=== PATIENT | male | born 1960 | race Hispanic/Latino ===

== ENCOUNTER 2018-04-13 05:55 | Day surgery (SDC) | payer OTHER ==
[2018-04-12 13:40] LABS: Absolute Lymphocytes (CBC) 1.9 K/uL (0.7-4.9); Absolute Neutrophil 3.9 K/uL (1.8-8.0); Basophils % 0.6 % (0-1.3); Eosinophils % 5.9 % (0-4.4); Hematocrit 45.8 % (39.6-49.0); Lymphocytes % 25.5 % (15.3-44.8); MCH 30.3 pg (27.0-35.0); MCV 87.1 fL (80-100); MPV 8.7 fL (7.6-11.3); Monocytes % 14.2 % (3.3-12.3); RBC Red Blood Cell Count 5.26 M/uL (4.33-5.43)
[2018-04-12 13:47] LABS: Protime INR 1.06
[2018-04-12 15:40] LABS: COL/ADP 62 SECONDS (56-102); COL/EPI 77 SECONDS (80-184)
[~2018-04-13 05:55] MED LIST: Ringers Lactate 1,000 ML IV SCH
--- OUTSIDE RECORDS SUMMARY | 2018-04-13 06:00 | XMS REPORT ---
:1960 Author Organization eClinicalWorks Care Team Providers Name Role Phone Clifton Guy Provider Role Unavailable Allergies No Known Allergies Problems Problem Type Condition Code Onset Dates Condition Status Problem Jaundice R17 Active Problem Obesity (BMI 30-39.9) E66.9 Active Problem Family history of diabetes mellitus Z83.3 Active Problem Back pain with left-sided M54.10 Active radiculopathy Problem Spinal stenosis of lumbosacral M48.07 Active region Problem Numbness of left foot R20.8 Active Problem Benign essential HTN I10 Active Problem Back pain M54.9 Active Problem Calculus of gallbladder with acute K80.01 Active cholecystitis and obstruction Problem Hyperlipidemia E78.5 Active Assessment Benign essential HTN I10 Active Assessment Hyperlipidemia E78.5 Active Assessment Numbness of left foot R20.8 Active Assessment Back pain with left-sided M54.10 Active radiculopathy Problem Cholestasis K83.1 Active Medications Medication Code System Code Instructions Start Date End Date Status Dosage Duexis [facility] 97695678150 800-26.6 MG Active 1 tablet Orally Three times a day Aspir-[address] [facility] 68818301981 81 MG Orally Once Active 1 tablet a day Results No Known Results Summary Purpose eClinicalWorks Submission
--- OUTSIDE RECORDS SUMMARY | 2018-04-13 06:00 | XMS REPORT ---
:1960 Author Organization eClinicalWorks Care Team Providers Name Role Phone Guy Lazo Provider Role Unavailable Allergies No Known Allergies Problems Problem Type Condition Code Onset Dates Condition Status Problem Jaundice R17 Active Problem Obesity (BMI 30-39.9) E66.9 Active Problem Family history of diabetes mellitus Z83.3 Active Problem Cholestasis K83.1 Active Problem Back pain with left-sided M54.10 Active radiculopathy Problem Spinal stenosis of lumbosacral M48.07 Active region Problem Numbness of left foot R20.8 Active Problem Benign essential HTN I10 Active Problem Back pain M54.9 Active Problem Calculus of gallbladder with acute K80.01 Active cholecystitis and obstruction Problem Hyperlipidemia E78.5 Active Medications No Known Medications Results No Known Results Summary Purpose eClinicalWorks Submission
[2018-04-13] MEDS ORDERED: Ringers Lactate 1,000 ML IV ONE (06:08)
[2018-04-13] MEDS ORDERED: TRIAMCINOLONE ACETON 40 MG/ML VIAL ONE ×2 (06:52→07:09)
[2018-04-13] MEDS ORDERED: LIDOCAINE 1% MPF 5 ML VIAL ONE (06:52)
[2018-04-13] MEDS ORDERED: BUPIVACAINE 0.25% PF 10 ML VIAL ONE (06:53)
[2018-04-13 07:57] VITALS: BP 101/71; TEMP 97.4; O2SAT 96
--- NOTE | 2018-04-13 08:54 | RAD REPORT ---
EXAM DESCRIPTION: RAD - Fluoro Guide Spinal Inj - 04/13/2018 8:48 am FINDINGS: Two fluoroscopic images were submitted from a fluoroscopic assisted pain or epidural stero id injection procedure. No suspicious or unexpected finding. Fluoro time was less than 0.1 minutes. Cumulative dose was 1.42 mGy.
--- NOTE | 2018-04-13 19:13 | DS ---
Date of Discharge: 04/13/2018 Admission Diagnoses: Low back pain, lumbar radicular pain, lumbar spondylosis, and lumbar degenerati ve disk disease. Postoperative Diagnoses: Low back pain, lumbar radicular pain, lumbar spondylosis, and lumbar degene rative disk disease. Pertinent History: Per his history and physical on chart. Hospital Course: Uneventful. Condition On Discharge: Good. Diet: As before. Followup: He is to follow up with us on his next injection in a couple of weeks. /HOOD Voice ID: [id number] Report ID: [id number]
--- NOTE | 2018-04-13 19:13 | OP ---
Date of Procedure: 04/13/2018 Surgeon: David Markham DO Preoperative Diagnoses: Low back pain, lumbar radicular pain, lumbar spondylosis, lumbar degenerativ e disk disease. Postoperative Diagnoses: Low back pain, lumbar radicular pain, lumbar spondylosis, lumbar degenerati ve disk disease. Procedures: 1.Fluoroscopy with the evaluation of lumbar spine. 2.Lumbar epidural steroid injection. Anesthesia: MAC with IV sedation. Estimated Blood Loss: Minimal. Complications: None. Procedure In Detail: Mr. Alonso is a 57-year-old male, who has significant pain in his low back regio n, pain radiating down into his left lower extremity. He had this for several years pain in his back , equals the pain to his left lower extremity. He has undergone surgery in the past. He does have s ome subjective complaints of tingling in his left lower extremity. His previous MRI scan revealed bi lateral foraminal stenosis at the L4-5 and the L5-S1 region with a right hemilaminectomy defect. The patient was taken to the OR Room #4, placed in the prone position. Back was prepped and draped in s terile fashion. Sacral hiatus was identified. A 1% lidocaine was used for local anesthesia. A 16-g auge RK needle was used until passing into the sacral hiatus. Needle tip position was confirmed on t he AP lateral and fluoroscopic views. Next, an epidural catheter was advanced in a cephalad directio n. The catheter could not be passed beyond the mid L5 cephalad traction. Next, 10 cc of Omnipaque contrast was used to perform lumbar epidurogram with very minimal spread in dire ction from that level. Next, 3 cc of 0.25% Marcaine was given as a test dose after few minutes. The re was no evidence of local anesthetic. Next, 7 cc of 0.25% Marcaine was mixed with 40 mg of Kenalog and this was injected slowly with frequent negative aspiration. After the procedure was completed, the patient then was taken to the recovery room in stable condition. The patient remained monitoring prior to discharge to home. JULISSA Voice ID: [id number] Report ID: [id number]
== END 2018-04-13 08:20 | disposition home or self-care (01) ==
LOC: OR 05:55
PROVIDERS: ATTEND Anesthesiology
PROC: 3E0S3BZ Introduction of Anesthetic Agent into Epidural Space, Percutaneous Approach (ICD-10-PCS; 2018-04-13)
PROC: B01BYZZ Fluoroscopy of Spinal Cord using Other Contrast (ICD-10-PCS; 2018-04-13)
PROC: B01BYZZ Fluoroscopy of Spinal Cord using Other Contrast (ICD-10-PCS; 2018-04-13)
PROC: 3E0S33Z Introduction of Anti-inflammatory into Epidural Space, Percutaneous Approach (ICD-10-PCS; principal; 2018-04-13 07:00)
DX: M51.16 Intervertebral disc disorders with radiculopathy, lumbar region (principal); M47.896 Other spondylosis, lumbar region
CPT/HCPCS: 36415; 77003; 85025; 85576; 85610; 85730; C1751; J3301

== ENCOUNTER 2018-04-27 06:00 | Day surgery (SDC) | payer OTHER ==
[~2018-04-27 06:00] MED LIST changes: +DEXAMETHASONE 10 MG/ML VIAL ONE; +LIDOCAINE 2% MPF 5 ML VIAL ONE; +MIDAZOLAM HCL 2 MG/2 ML INJ ONE; +PROPOFOL 200 MG/20 ML VIAL IV ONE; -Ringers Lactate 1,000 ML IV SCH
--- OUTSIDE RECORDS SUMMARY | 2018-04-27 06:11 | XMS REPORT ---
[...] Date End Date Status Dosage Duexis [facility] [id number] 800-26.6 MG Active 1 tablet Orally Three times a day Aspir-81 [facility] 45831114749 81 MG Orally Once Active 1 tablet a day Results No Known Results Summary Purpose eClinicalWorks Submission
--- OUTSIDE RECORDS SUMMARY | 2018-04-27 06:11 | XMS REPORT ---
[...] and obstruction Problem Hyperlipidemia E78.5 Active Assessment Numbness of left foot R20.8 Active Assessment Benign essential HTN I10 Active Assessment Back pain with left-sided M54.10 Active radiculopathy Assessment Hyperlipidemia E78.5 Active Problem Cholestasis K83.1 Active Medications Medication Code System Code Instructions Start Date End Date Status Dosage Duexis [facility] 47038434626 800-26.6 MG Active 1 tablet Orally Three times a day Aspir-81 [facility] 13407906540 81 MG Orally Once Active 1 tablet a day Results No Known Results Summary Purpose eClinicalWorks Submission
[2018-04-27] MEDS ORDERED: PROPOFOL 200 MG/20 ML VIAL IV ONE ×2 (06:34→06:36)
[2018-04-27] MEDS ORDERED: LIDOCAINE 1% MPF 5 ML VIAL ONE ×2 (06:35→06:46)
[2018-04-27] MEDS ORDERED: MIDAZOLAM HCL 2 MG/2 ML INJ ONE (06:35)
[2018-04-27] MEDS ORDERED: Ringers Lactate 1,000 ML IV ONE (06:41)
[2018-04-27] MEDS ORDERED: TRIAMCINOLONE ACETON 40 MG/ML VIAL ONE (06:47)
[2018-04-27] MEDS ORDERED: BUPIVACAINE 0.25% PF 10 ML VIAL ONE (06:47)
[2018-04-27] MEDS ORDERED: NS 0.9% VIAL 0 ML ONE (07:05)
[2018-04-27 08:01] VITALS: BP 122/77; TEMP 97.5; O2SAT 98
--- NOTE | 2018-04-27 08:56 | RAD REPORT ---
EXAM DESCRIPTION: RAD - Fluoro Guide Spinal Inj - 04/27/2018 7:30 am FINDINGS: Fluoroscopic assisted epidural lumbosacral steroid injection procedure performed. There we re 2 images submitted which show no suspicious or unexpected finding. Fluoro time was 0.1 minutes. Cumulative dose was 3.21 mGy.
--- NOTE | 2018-04-27 18:37 | DS ---
Date of Discharge: 04/27/2018 Admission Diagnoses: Low back pain, lumbar radicular pain, lumbar spondylosis, lumbar degenerative d isk disease. Discharge Diagnoses: Low back pain, lumbar radicular pain, lumbar spondylosis, lumbar degenerative d isk disease. Pertinent History: Per his history and physical on the chart. Diet: Regular as before. Followup: He is to follow up with us in a couple weeks for his third injection. /HOOD Voice ID: [id number] Report ID: [id number]
--- NOTE | 2018-04-27 18:42 | OP ---
Date of Procedure: 04/27/2018 Surgeon: David Markham DO Preoperative Diagnoses: Low back pain, lumbar radicular pain, lumbar spondylosis, lumbar degenerativ e disk disease. Postoperative Diagnoses: Low back pain, lumbar radicular pain, lumbar spondylosis, lumbar degenerati ve disk disease. Procedures: 1.Fluoroscopy with evaluation of the lumbar spine. 2.Lumbar epidural steroid injection. Anesthesia: MAC with IV sedation. Estimated Blood Loss: Minimal. Complications: None. Indications: Mr. Alonso is a 58-year-old male who has significant pain in his low back region, pain r adiating down into his left lower extremity. He has had this for several months. He has undergone s urgery in the past. The pain in his low back is described as direct. This becomes worst with most p rolonged activity. The risks and benefits of procedure explained to the patient. The patient agrees to proceed. Procedure In Detail: The patient was taken to the OR room #1, placed in the prone position. The trent k was prepped and draped in sterile fashion. The sacral hiatus was identified. 1% lidocaine used fo r local anesthesia. A 16-gauge RK needle was used until passing into the sacral hiatus. Needle tip position was confirmed in the AP and lateral fluoroscopic views. Next, an epidural catheter was adva nced in a cephalad direction. The catheter could not be passed beyond the mid L5 cephalad direction. Next, 10 cc of Omnipaque contrast was used to perform diagnostic lumbar epidurogram with very minimal spread of the dye in a separate direction from that level with additional fluids that w as injected some flow dye to the L4-L5 level. Next, 3 cc of 0.25% Marcaine was given as a test dose after few minutes. There was no evidence of intrathecal, intravascular subdural spread of local anes thetic. Next 7 cc of 0.25% Marcaine was mixed with 40 mg of Kenalog. This was injected slowly with frequent negative aspiration. After the procedure was completed, the patient was taken to the [facility] in stable condition. /HOOD Voice ID: [id number] Report ID: [id number]
== END 2018-04-27 08:00 | disposition home or self-care (01) ==
LOC: OR 06:00
PROVIDERS: ATTEND Anesthesiology
PROC: 3E0U33Z Introduction of Anti-inflammatory into Joints, Percutaneous Approach (ICD-10-PCS; 2018-04-27)
PROC: BR16YZZ Fluoroscopy of Lumbar Facet Joint(s) using Other Contrast (ICD-10-PCS; 2018-04-27)
PROC: 3E0U3BZ Introduction of Anesthetic Agent into Joints, Percutaneous Approach (ICD-10-PCS; principal; 2018-04-27 07:00)
DX: M47.26 Other spondylosis with radiculopathy, lumbar region (principal); M51.36 Other intervertebral disc degeneration, lumbar region
CPT/HCPCS: 77003; C1751; J1100; J2250; J3301; Q9967

== ENCOUNTER 2018-05-11 06:02 | Day surgery (SDC) | payer OTHER ==
--- OUTSIDE RECORDS SUMMARY | 2018-05-11 06:04 | XMS REPORT ---
[...] Start Date End Date Status Dosage Duexis [facility] [id number] 800-26.6 MG Active 1 tablet Orally Three times a day Aspir-81 [facility] 94986098783 81 MG Orally Once Active 1 tablet a day Results No Known Results Summary Purpose eClinicalWorks Submission
--- OUTSIDE RECORDS SUMMARY | 2018-05-11 06:04 | XMS REPORT ---
[...] Start Date End Date Status Dosage Duexis [facility] 41662622220 800-26.6 MG Active 1 tablet Orally Three times a day Aspir-81 [facility] 15398381908 81 MG Orally Once Active 1 tablet a day Results No Known Results Summary Purpose eClinicalWorks Submission
[2018-05-11] MEDS ORDERED: TRIAMCINOLONE ACETON 40 MG/ML VIAL ONE (06:44)
[2018-05-11] MEDS ORDERED: LIDOCAINE 1% MPF 2 ML AMPULE ONE (06:45)
[2018-05-11] MEDS ORDERED: Ringers Lactate 1,000 ML IV ONE (06:47)
[2018-05-11] MEDS ORDERED: PROPOFOL 200 MG/20 ML VIAL IV ONE (07:01)
[2018-05-11] MEDS ORDERED: MIDAZOLAM HCL 2 MG/2 ML INJ ONE (07:01)
[2018-05-11] MEDS: BUPIVACAINE 0.25% PF 10 ML VIAL ONE ×2 (07:08→07:10)
[2018-05-11 07:43] VITALS: BP 112/69; TEMP 97.7; O2SAT 100
--- NOTE | 2018-05-11 10:05 | RAD REPORT ---
EXAM DESCRIPTION: RAD - Fluoro Guide Spinal Inj - 05/11/2018 7:35 am CLINICAL HISTORY: Back pain. FINDINGS: The examination was performed for epidural steroid injection into the lumbar spine. The ex am was performed by Dr. Markham. Fluoroscopy 7 seconds Cumulative dose 1.66 mGy.
--- NOTE | 2018-05-11 18:04 | OP ---
Date of Procedure: 05/11/2018 Surgeon: David Markham DO Preoperative Diagnoses: Low back pain, lumbar radicular pain, lumbar spondylosis, lumbar degenerativ e disk disease. Postoperative Diagnoses: Low back pain, lumbar radicular pain, lumbar spondylosis, lumbar degenerati ve disk disease Procedures: 1.Fluoroscopy with evaluation of lumbar spine. 2.Lumbar epidural steroid injection. Anesthesia: MAC with IV sedation. Estimated Blood Loss: Minimal. Complication: None. Indications: Mr. Alonso is a 58year-old male who has a history of low back region pain rad iating down into his left lower extremity. He has undergone a lumbar epidural steroid injection few weeks ago with good relief. The risks and benefits of the procedure were explained to the patient. The patient agrees to proceed with the procedure. Procedure In Detail: The patient was taken to the OR room #1, placed in the prone position. Back wa s prepped and draped in sterile fashion. Sacral hiatus was identified. 1% lidocaine used for local anesthesia. A 16-gauge RK needle was used until passing into the sacral hiatus. Needle tip position was confirmed in the AP and lateral fluoroscopic views. Next, an epidural catheter was advanced in a cephalad direction. It was noted that the catheter could not be passed beyond the mid L5 vertebral body region in a cephalad direction. Next, 10 cc of Omnipaque dye used to a perform diagnostic lumb ar epidurogram with very minimal spread of the dye in a cephalad direction from that level. Next, 3 cc of 0.25% Marcaine was given as a test dose. After few minutes, there was no evidence of intrathec al, intravascular subdural spread of local anesthetic. Next, 7 cc of 0.25% Marcaine was mixed with 4 0 mg of Kenalog. This was injected slowly with frequent negative aspirations. After the procedure w as completed, the patient was taken to the recovery room in stable condition. /HOOD Voice ID: [id number] Report ID: [id number]
--- NOTE | 2018-05-11 18:04 | DS ---
Date of Discharge: 05/11/2018 Admission Diagnoses: Low back pain, lumbar radicular pain, lumbar spondylosis, lumbar degenerative d isk disease. Discharge Diagnoses: Low back pain, lumbar radicular pain, lumbar spondylosis, lumbar degenerative d isk disease. Procedure: Lumbar epidural steroid injection. Hospital Course: Uneventful. Discharge Condition: Good. Followup: He is to follow up with us in our office in 1-2 weeks. JULISSA Voice ID: [id number] Report ID: [id number]
== END 2018-05-11 07:46 | disposition home or self-care (01) ==
LOC: OR 06:02
PROVIDERS: ATTEND Anesthesiology
PROC: 3E0R33Z Introduction of Anti-inflammatory into Spinal Canal, Percutaneous Approach (ICD-10-PCS; 2018-05-11)
PROC: B01BZZZ Fluoroscopy of Spinal Cord (ICD-10-PCS; 2018-05-11)
PROC: 3E0R3BZ Introduction of Anesthetic Agent into Spinal Canal, Percutaneous Approach (ICD-10-PCS; principal; 2018-05-11 07:00)
DX: M54.5 Low back pain (principal); M54.16 Radiculopathy, lumbar region; M47.896 Other spondylosis, lumbar region; M51.36 Other intervertebral disc degeneration, lumbar region
CPT/HCPCS: 77003; C1751; J2001; J2250; J3301; Q9967

== ENCOUNTER 2021-09-22 15:16 | Emergency (ER) | payer BC, SELFPAY ==
--- OUTSIDE RECORDS SUMMARY | 2021-09-22 15:19 | XMS REPORT | Continuity of Care Document ---
:1960 Author Organization [facility] t Address [address] [place] [address] Care Team Providers Name Role Phone Unavailable Unavailable Unavailable Problems Condition Condition Condition Status Onset Resolution Last Treating Co mments Source Name Details Category Date Date Treatment Clinician Date Jaundice Ja[facility]ice [facility] Obesity Obesity Problem Active [facility] (BMI (BMI [facility] - 30-39.9) 30-39.9) [facility] Family Family Problem Active [facility] history of history of Mini kes - diabetes diabetes Memori a mellitus mellitus l [facility] Back pain Back pain Diagnosis Active [facility] - left-sided left-sided Me moria radiculopa radiculopa l thy thy [facility] Spinal Spinal Problem Active [facility] stenosis stenosis [facility] lumbosacra lumbosacra l l region l region Outpat i ent Clinics Numbness Numbness Diagnosis Active [facility] of left of left [facility] foot foot [facility] Benign Benign Diagnosis Active [facility] essential essential [facility] - HTN HTN Memoria l [facility] Back pain Back pain Problem [facility] Calculus Calculus Problem [facility] gallbladde gallbladde Me moria r with r with l acute acute Outpati cholecysti cholecysti en t tis and tis and Clinics obstructio obstructio n n Hyperlipid Hyperlipid Diagnosis Active [facility]ia [facility] Cholestasi Cholestasi Problem Active [facility] Adult BMI Adult BMI Problem Active [facility] 30.0-30.9 30.0-30.9 Luke s - kg/sq m kg/sq m [facility] Allergies, Adverse Reactions, Alerts This patient has no known allergies or adverse reactions. Medications Ordered Filled Start Stop Current Ordering Indication Dosage Frequency Signature Comments Components Source Medication Medication Date Date Medication? Clinician (SIG) Name Name Dallin Zamarripa Yes Guy [address] [facility] Procedures This patient has no known procedures. Encounters Start End Encounter Admission Attending Care Care Encounter Source Date/Time Date/Time Type Type Clinicians Facility Department ID 2019-11-27 2019-11-27 [facility] [id number] [facility] 11[facility]00[facility]00 11[facility]00[facility]00 [facility] 2019-10-30 2019-10-30 [facility] [id number] 08:00[facility]00 08:00:00 [facility] Outpat[facility] ent Clinics 2019-02-27 2019-02-27 [facility] [id number] 16:45:00 16:45:00 [facility] Outpat[facility] ent Clinics 2018-10-10 2018-10-10 [facility] [id number] [facility] 08:30:00 08:30:00 [facility] Outpat[facility] ent Clinics 2018-08-23 2018-08-23 [facility] [id number] [facility] 08:15:00 08:15:00 [facility] Outpat[facility] ent Clinics 2018-04-21 2018-04-21 [facility] [id number] [facility] 08:45:00 08:45:00 [facility] Out[facility] ent Clin[facility] 2018-02-14 2018-02-14 [facility] [id number] [facility] 09:46:00 09:46:00 [facility] Out[facility] Clinics 2017-12-21 2017-12-21 [facility] [id number] [facility] 15:30:00 15:30:00 [facility] Clin[facility] Results This patient has no known results.
--- NOTE | 2021-09-22 16:24 | EDPHYS ---
Physician Documentation [facility] Name: Eran Alonso Age: 61 yrs Sex: Male : 1960 Arrival Date: 09/22/2021 Time: 15:19 Bed Waiting Private MD: ED Physician Bhaskar Herr HPI: 09/22 16:47 This 61 yrs old Male presents to ER via Ambulatory with complaints of COVID. kb 16:47 The patient or guardian reports cough, that is intermittent, described as mild, flu kb symptoms, low-grade fever. Onset: The symptoms/episode began/occurred 3 day(s) ago. Severity of symptoms: At their worst the symptoms were mild, moderate, in the emergency department the symptoms are unchanged. Modifying factors: The symptoms are alleviated by nothing, the symptoms are aggravated by nothing. Associated signs and symptoms: Pertinent positives: fever, Pertinent negatives: chest pain, diarrhea, ear ache, nausea, rhinorrhea, sore throat, vomiting. The patient has not experienced similar symptoms in the past. The patient has not recently seen a physician. Pt reports he has had cough and fever for 3 days, shortness of breath yesterday. Tested positive for covid at a clinic this morning so he came in. States he has been monitoring his saturation and it has been above 90 except for one drop after a coughing spell to 81%. Reports it came back up after that. Ambulates without assist and without distress. Oxygen 94-96% on room air in triage. . ROS: 16:47 Cardiovascular: Negative for chest pain, palpitations, and edema. kb 16:47 Constitutional: Positive for fever, malaise. 16:47 Respiratory: Positive for cough, shortness of breath. 16:47 All other systems are negative. Exam: 16:47 Constitutional: This is a well developed, well nourished patient who is awake, alert, kb and in no acute distress. Head/Face: Normocephalic, atraumatic. ENT: Moist Mucous membranes Cardiovascular: Regular rate and rhythm with a normal S1 and S2. No gallops, murmurs, or rubs. No pulse deficits. Respiratory: Respirations even and unlabored. No increased work of breathing. Talking in full sentences Skin: Warm, dry with normal turgor. Normal color. MS/ Extremity: Pulses equal, no cyanosis. Neurovascular intact. Full, normal range of motion. Neuro: Awake and alert, GCS 15, oriented to person, place, time, and situation. Moves all extremities. Normal gait. Psych: Awake, alert, with orientation to person, place and time. Behavior, mood, and affect are within normal limits. Vital Signs: 16:10 BP 146 / 82; Pulse 87; Resp 18; Temp 98.0; Pulse Ox 96% on R/A; Weight 86.18 kg; Height vg1 5 ft. 6 in. (167.64 cm); Pain 0/10; 16:10 Body Mass Index 30.67 (86.18 kg, 167.64 cm) vg1 MDM: 16:21 Patient medically screened. kb 16:21 Data reviewed: vital signs, nurses notes. Data interpreted: Pulse oximetry: on room air kb is 96 %. Interpretation: normal. Counseling: I had a detailed discussion with the patient and/or guardian regarding: the historical points, exam findings, and any diagnostic results supporting the discharge/admit diagnosis, the need for outpatient follow up, a family practitioner, to return to the emergency department if symptoms worsen or persist or if there are any questions or concerns that arise at home. ED course: Offered workup and possible admission for symptoms. Pt states he thinks his oxygen went low because of a coughing spell, but it has been in the 90s most of the time. Wants to go home to rest, will monitor oxygen and return for sustained oxygen sat less than 90%. . Administered Medications: No medications were administered Disposition: 16:21 COVID-19. kb 09/23 07:38 Co-signature as Attending Physician, Bhaskar Herr MD I agree with the assessment and aminah plan of care. Disposition Summary: 09/22/21 16:23 Discharge Ordered Location: Home kb Condition: Stable kb Diagnosis - Coronavirus infection, unspecified kb - Encounter for screening, unspecified kb Followup: kb - With: Emergency Department - When: As needed - Reason: Worsening of condition Followup: kb - With: Private Physician - When: 2 - 3 days - Reason: Recheck today's complaints, Continuance of care, Re-evaluation by your physician Forms: - Medication Reconciliation Form kb - Thank You Letter kb - Antibiotic Education kb - Prescription Opioid Use kb Signatures: Leticia Ferreira FNP-C FNP-Ckb Anderson, Bhaskar, MD MD aminah
--- NOTE | 2021-09-22 16:24 | ER ---
Nurse's Notes [facility] Name: Eran Alonso Age: 61 yrs Sex: Male : 1960 Arrival Date: 09/22/2021 Time: 15:19 Bed Waiting Private MD: Diagnosis: Coronavirus infection, unspecified;Encounter for screening, unspecified Presentation: 09/22 16:10 Chief complaint: Patient states: O2 dropped to 81% after 'having a coughing spell'. vg1 States is Covid positive. Fever and SOB x 3 days. Coronavirus screen: Vaccine status: Patient reports receiving the 2nd dose of the covid vaccine. Client denies travel out of the [place] in the last 14 days. Client presents with at least one sign or symptom that may indicate coronavirus-19. Standard/surgical mask placed on the client. Client reports previous positive COVID test result. Date of collection: September 22, 2021. Ebola Screen: Patient negative for fever greater than or equal to 101.5 degrees Fahrenheit, and additional compatible Ebola Virus Disease symptoms. Initial Sepsis Screen: Does the patient meet any 2 criteria? No. Patient's initial sepsis screen is negative. Does the patient have a suspected source of infection? No. Patient's initial sepsis screen is negative. Risk Assessment: Do you want to hurt yourself or someone else? Patient reports no desire to harm self or others. Onset of symptoms was September 22, 2021. 16:10 Method Of Arrival: Ambulatory vg1 16:10 Acuity: CRISTINA 3 vg1 Vital Signs: 16:10 BP 146 / 82; Pulse 87; Resp 18; Temp 98.0; Pulse Ox 96% on R/A; Weight 86.18 kg; Height vg1 5 ft. 6 in. (167.64 cm); Pain 0/10; 16:10 Body Mass Index 30.67 (86.18 kg, 167.64 cm) vg1 ED Course: 15:19 Patient arrived in ED. ja2 16:00 Leticia Ferreira F[facility]-C [facility]. kb 16:00 Bhaskar Herr MD is Attending Physician. kb 16:13 Triage completed. vg1 Administered Medications: No medications were administered Outcome: 16:23 Discharge ordered by . kb 17:01 Patient left the ED. vg1 Signatures: Leticia Ferreira FNP-C FNP-Ckb Garcia, Victoria, TIARA RN vg1 Barbara Kumari2
[2021-09-22 17:05] VITALS: BP 146/82; TEMP 98; O2SAT 96
== END 2021-09-22 17:01 | disposition home or self-care (01) ==
LOC: ER 15:16
DX: U07.1 COVID-19 (principal)
CPT/HCPCS: 99281

== ENCOUNTER 2021-10-13 11:52 | Observation (INO) | payer BC ==
--- OUTSIDE RECORDS SUMMARY | 2021-10-13 11:54 | XMS REPORT | Continuity of Care Document ---
:1960 Author Organization [facility] t Address [address] [place] [address] Care Team Providers Name Role Phone Guy Lazo Attending Clinician Unavailable Problems This patient has no known problems. Allergies, Adverse Reactions, Alerts This patient has no known allergies or adverse reactions. Medications Ordered Filled Start Stop Current Ordering Indication Dosage Frequency Signature Comments Components Source Medication Medication Date Date Medication? Clinician (SIG) Name Name Aspir-81 Aspir-81 Yes Guy [address] [facility] Procedures This patient has no known procedures. Encounters Start End Encounter Admission Attending Care Care Encounter Source Date/Time Date/Time Type Type Clinicians Facility Department ID 2021-10-01 [id number] [id number] [facility] 12:32:19 Guy [address] [facility] 2021-10-01 Outpatient LazoJOON silva [facility] [id number] [facility] 11:14:43 Guy [address]393 [facility] 2021-10-06 2021-10-06 ambulatory [facility] [id number] [facility] 2021-09-19 2021-09-19 ambulatory [facility] [id number] [facility] 2019-11-27 2019-11-27 [facility] [id number] [facility] 11:00:00 11:00:00 [place] [employer] [facility] 2019-10-30 2019-10-30 [facility] [id number] [facility] 08:00:00 08:00:00 t [place] [employer] [facility] 2019-02-27 2019-02-27 [facility] [id number] [facility] 16:45:00 16:45:00 t [place] [employer] [facility] 2018-10-10 2018-10-10 [facility] [id number] [facility] 08:30:00 08:30:00 t [place] [employer] [facility] 2018-08-23 2018-08-23 [facility] [id number] [facility] 08:15:00 08:15:00 t [place] [employer] [facility] 2018-04-21 2018-04-21 [facility] [id number] [facility] 08:45:00 08:45:00 t [employer] [facility] 2018-02-14 2018-02-14 [facility] [id number] [facility] 09:46:00 09:46:00 t [place] [employer] [facility] 2017-12-21 2017-12-21 [facility] [id number] [facility] 15:30:00 15:30:00 [facility] [employer] [facility] Results This patient has no known results.
[2021-10-13 12:45] LABS: Absolute Lymphocytes (CBC) 1.7 K/uL (0.7-4.9); Lymphocytes % 20.4 % (15.3-44.8); MPV 7.8 fL (7.6-11.3); RBC Red Blood Cell Count 5.03 M/uL (4.33-5.43)
[2021-10-13 13:03] LABS: ALT/SGPT 107 U/L (12-78); AST/SGOT 44 U/L (15-37); Albumin 3.1 g/dL (3.4-5.0); Alkaline Phosphatase 113 U/L (45-117); BUN Blood Urea Nitrogen 9 mg/dL (7-18); Bicarbonate 24 mmol/L (21-32); Bilirubin Direct 0.1 mg/dL (0-0.2); Bilirubin Total 0.6 mg/dL (0.2-1.0); C-Reactive Protein 4.82 mg/L (<3.00); Ferritin 454.8 ng/mL (26-388); Glucose Level 135 mg/dL (74-106); Lipase 200 U/L (73-393); Potassium 3.8 mmol/L (3.5-5.1); Protein, Total 7.1 g/dL (6.4-8.2); Sodium Level 139 mmol/L (136-145)
[2021-10-13 13:10] LABS: Platelet Estimate ADEQ; White Blood Cell Scan OK (OK)
[2021-10-13 13:11] LABS: Blood Morphology Comment NOT SEEN (NOT SEEN)
[2021-10-13] MEDS ORDERED: NA CHLORIDE 0.9% 1,000 ML ONE (13:20)
--- NOTE | 2021-10-13 13:56 | RAD REPORT ---
EXAM DESCRIPTION: CT - Chest For Pe Angio - 10/13/2021 1:42 pm CLINICAL HISTORY: sob COMPARISON: None. TECHNIQUE: Dynamically enhanced axial 3 mm thick images of the chest were obtained during administra tion of <100> mL Isovue 370 IV contrast. Coronal and oblique reconstruction images were generated and reviewed. Exam utilizes a protocol for optimal evaluation of pulmonary arterial tree. Maximum intensity projections 3D imaging was utilized All CT scans are performed using dose optimization technique as appropriate and may include automated exposure control or mA/KV adjustment according to patient size. FINDINGS: A pulmonary embolus is not seen. A thoracic aortic aneurysm is not noted. A pleural effusion is not seen. A pericardial effusion is not seen. Mild to moderate bilateral ground-glass opacities. Most inferior slice demonstrates a 2.7 centimeter right renal mass incompletely evaluated on this exa m. MRI 2012 demonstrated a cyst in this region. IMPRESSION: Negative for a pulmonary embolism. Mild to moderate bilateral ground-glass opacities can be seen with Coovid pneumonia Probable right renal cyst incompletely evaluated on this exam. Nonemergent ultrasound recommended
--- NOTE | 2021-10-13 14:12 | RAD REPORT ---
EXAM DESCRIPTION: [place] Single View10/13/2021 1:07 pm CLINICAL HISTORY: sob COMPARISON: none FINDINGS: Sinr-[id number] bilateral pulmonary opacities The heart is normal size IMPRESSION: Mild to moderate bilateral pulmonary opacities probably pneumonia
--- NOTE | 2021-10-13 14:22 | EDPHYS ---
Physician Documentation [facility] Name: Eran Alonso Age: 61 yrs Sex: Male : 1960 Arrival Date: 10/13/2021 Time: 11:54 Bed 28 Private MD: ED Physician Jacky Krause HPI: 10/13 12:20 This 61 yrs old Male presents to ER via Ambulatory with complaints of kb Shortness Of Breath. 12:20 The patient has shortness of breath at rest, with light activity. Onset: The kb symptoms/episode began/occurred last month. Duration: The symptoms are continuous. The patient's shortness of breath is aggravated by exertion, is alleviated by rest. Associated signs and symptoms: The patient has no apparent associated signs or symptoms. Severity of symptoms: At their worst the symptoms were moderate in the emergency department the symptoms are unchanged. The patient has not experienced similar symptoms in the past. The patient has not recently seen a physician. Pt was diagnosed with covid on 09/22/21. States most of his symptoms have resolved except for the shortness of breath that is worse on exertion. States his sats at home are 93% at rest and he has not tested them recently upon exertion. O2 sat after ambulating to room is 89%. . Historical: - Allergies: 12:05 No Known Allergies; jl7 - Home Meds: 12:05 None [Active]; jl7 - PMHx: 12:05 None; jl7 - Immunization history:: Adult Immunizations up to date. - Social history:: Smoking status: Patient denies any tobacco usage or history of. ROS: 12:20 Constitutional: Negative for fever, chills, and weight loss. kb 12:20 Respiratory: Positive for dyspnea on exertion, shortness of breath. 12:20 All other systems are negative. Exam: 12:20 Constitutional: This is a well developed, well nourished patient who is awake, alert, kb and in no acute distress. Head/Face: Normocephalic, atraumatic. ENT: Moist Mucous membranes Cardiovascular: Regular rate and rhythm with a normal S1 and S2. No gallops, murmurs, or rubs. No pulse deficits. Skin: Warm, dry with normal turgor. Normal color. MS/ Extremity: Pulses equal, no cyanosis. Neurovascular intact. Full, normal range of motion. Neuro: Awake and alert, GCS 15, oriented to person, place, time, and situation. Moves all extremities. Normal gait. Psych: Awake, alert, with orientation to person, place and time. Behavior, mood, and affect are within normal limits. 12:20 Respiratory: mild respiratory distress is noted, Respirations: labored breathing, that is mild, Breath sounds: are clear throughout. 12:36 ECG was reviewed by the Attending Physician. Vital Signs: 12:03 BP 154 / 93; Pulse 93; Resp 23; Temp 98.9; Pulse Ox 91% on R/A; Weight 81.65 kg; Height jl7 5 ft. 6 in. (167.64 cm); Pain 0/10; 12:44 BP 153 / 85; Pulse 83; Resp 18; Pulse Ox 96% on R/A; ld1 13:56 BP 145 / 93; Pulse 84; Resp 18; Pulse Ox 95% on R/A; ld1 15:08 BP 130 / 97; Pulse 84; Resp 18; Pulse Ox 96% on R/A; ld1 16:16 BP 143 / 94; Pulse 82; Resp 23; Pulse Ox 97% on R/A; ld1 12:03 Body Mass Index 29.05 (81.65 kg, 167.64 cm) jl7 MDM: 12:08 Patient medically screened. 12:20 Data reviewed: vital signs, nurses notes. Data interpreted: Pulse oximetry: on room air kb is 89 %. Interpretation: hypoxia. Plan: O2 by NC applied. 14:08 Physician consultation: Lilli Duenas MD was contacted at 14:08, regarding admission, kb in the emergency department to see patient at 14:08. 14:21 Counseling: I had a detailed discussion with the patient and/or guardian regarding: the kb historical points, exam findings, and any diagnostic results supporting the discharge/admit diagnosis, lab results, radiology results, the need for further work-up and treatment in the hospital. 10/13 12:09 Order name: BMP; Complete Time: 13:06 kb 10/13 12:09 Order name: Blood Culture Adult (2) kb 10/13 12:09 Order name: C-Reactive Protein; Complete Time: 13:06 kb 10/13 12:09 Order name: CBC with Diff; Complete Time: 13:11 kb 02/07 12:09 Order name: D-Dimer; Complete Time: 12:53 kb 10/13 12:09 Order name: Ferritin; Complete Time: 13:06 kb 10/13 12:09 Order name: LFT's; Complete Time: 13:06 kb 10/13 12:09 Order name: Lactate; Complete Time: 13:06 kb 10/13 12:09 Order name: Lipase; Complete Time: 13:06 kb 10/13 12:09 Order name: PT-INR; Complete Time: 12:53 kb 10/13 12:09 Order name: Procalcitonin; Complete Time: 13:44 kb 10/13 12:09 Order name: Ptt, Activated; Complete Time: 12:53 kb 10/13 12:09 Order name: Troponin HS; Complete Time: 13:06 kb 10/13 13:03 Order name: COVID-19 SARS RT PCR (Document "Date of Onset" if Symptomatic); Complete kb Time: 14:13 10/13 12:09 Order name: CXR XRAY; Complete Time: 14:13 kb 10/13 12:54 Order name: CT Chest For PE Angio; Complete Time: 13:59 kb 10/13 13:11 Order name: CBC Smear Scan; Complete Time: 13:11 EDMS 10/13 15:12 Order name: CBC with Automated Diff EDMS 10/13 15:12 Order name: CBC with Automated Diff EDMS 10/13 15:12 Order name: Comprehensive Metabolic Panel EDMS 10/13 15:12 Order name: Comprehensive Metabolic Panel EDMS 10/13 15:12 Order name: Lipid Profile EDMS 10/13 15:12 Order name: Lipid Profile EDMS 10/13 15:12 Order name: Magnesium EDMS 10/13 15:12 Order name: Magnesium EDMS 10/13 15:12 Order name: Magnesium EDMS 10/13 15:12 Order name: Magnesium EDMS 10/13 15:13 Order name: Mri Abdomen W/Wo Cont EDMS 10/13 16:08 Order name: Lactate Sepsis 2 HR Follow-up; Complete Time: 16:28 EDMS 10/13 12:09 Order name: EKG; Complete Time: 12:10 kb 10/13 12:09 Order name: Cardiac monitoring; Complete Time: 12:29 kb 10/13 12:09 Order name: Droplet/Contact Precautions; Complete Time: 12:34 kb 10/13 12:09 Order name: EKG - Nurse/Tech; Complete Time: 12:29 kb 10/13 12:09 Order name: IV Start; Complete Time: 12:35 kb 10/13 12:09 Order name: Labs collected and sent; Complete Time: 12:35 kb 10/13 12:09 Order name: O2 Per Protocol; Complete Time: 12:35 kb 10/13 12:09 Order name: O2 Sat Monitoring; Complete Time: 12:35 kb 10/13 15:12 Order name: Heart Healthy EDMS EC:36 Rate is 84 beats/min. Rhythm is regular. QRS [place] is Normal. [place] interval is normal at kb 138 msec. QRS interval is normal at 84 msec. QT interval is normal at 360 msec. Administered Medications: 13:20 Drug: NS 0.9% 1000 ml Route: IV; Rate: 1000 ml; Site: left antecubital; ld1 15:23 Follow up: Response: No adverse reaction; IV Status: Completed infusion; IV Intake: ld1 1000ml 15:23 Drug: SOLU-Medrol (methylPrednisoLONE) 125 mg Route: IVP; Site: left antecubital; ld1 15:23 Follow up: Response: No adverse reaction ld1 Disposition: 18:21 Co-signature as Attending Physician, Jacky Krause MD I agree with the assessment and kdr plan of care. Disposition Summary: 10/13/21 14:21 Hospitalization Ordered Hospitalization Status: Observation kb Provider: Lilli Duenas Location: Telemetry/MedSurg (observation) kb Condition: Stable kb Problem: new kb Symptoms: are unchanged kb Bed/Room Type: Standard Room Assignment: 411(10/13/21 15:28) iw Diagnosis - Coronavirus infection, unspecified kb - Pneumonia due to SARS-associated coronavirus kb Forms: - Medication Reconciliation Form kb - SBAR form kb Signatures: Dispatcher [employer] EDNE Leticia Ferreira FNP-C FNP-Ckb Rittger, Kevin, MD MD kdr Simran Goldman RN RN iw Buster Radford RN RN jl7 Kristen Odonnell RN RN ld1 Corrections: (The following items were deleted from the chart) 15:28 14:21 kb iw
--- NOTE | 2021-10-13 14:22 | ER ---
Nurse's Notes [facility] Name: Eran Alonso Age: 61 yrs Sex: Male : 1960 Arrival Date: 10/13/2021 Time: 11:54 Bed 28 Private MD: Diagnosis: Coronavirus infection, unspecified;Pneumonia due to SARS-associated coronavirus Presentation: 10/13 12:03 Chief complaint: Patient states: Had covid since 09-22-21, checked O2 at home and it jl7 went down to 80, reports SOB on exertion. Coronavirus screen: Vaccine status: Patient reports receiving the 2nd dose of the covid vaccine. shortness of breath. Ebola Screen: No symptoms or risks identified at this time. Initial Sepsis Screen: Does the patient meet any 2 criteria? No. Patient's initial sepsis screen is negative. Does the patient have a suspected source of infection? No. Patient's initial sepsis screen is negative. Risk Assessment: Do you want to hurt yourself or someone else? Patient reports no desire to harm self or others. Onset of symptoms was September 22, 2021. 12:03 Method Of Arrival: Ambulatory 7 12:03 Acuity: CRISTINA 3 jl7 Triage Assessment: 12:05 General: Appears in no apparent distress. uncomfortable, Behavior is calm, cooperative, jl7 appropriate for age. Pain: Denies pain. Respiratory: Reports shortness of breath on exertion Airway is patent Respiratory effort is even, labored, Respiratory pattern is symmetrical, tachypnea Onset: The symptoms/episode began/occurred gradually, the patient has mild shortness of breath. Historical: - Allergies: 12:05 No Known Allergies; jl7 - Home Meds: 12:05 None [Active]; jl7 - PMHx: 12:05 None; jl7 - Immunization history:: Adult Immunizations up to date. - Social history:: Smoking status: Patient denies any tobacco usage or history of. Screenin:44 Abuse screen: Denies threats or abuse. Denies injuries from another. Nutritional ld1 screening: No deficits noted. Tuberculosis screening: No symptoms or risk factors identified. Fall Risk None identified. Assessment: 12:44 General: Appears in no apparent distress. comfortable, Behavior is calm, cooperative, ld1 appropriate for age. Pain: Denies pain. Neuro: Level of Consciousness is awake, alert, obeys commands, Oriented to person, place, time, situation. Cardiovascular: Capillary refill < 3 seconds Patient's skin is warm and dry. Rhythm is regular. Respiratory: Reports shortness of breath at rest on exertion Airway is patent Respiratory effort is even, unlabored, Respiratory pattern is regular, symmetrical, Breath sounds are clear. GI: Abdomen is flat, non-distended. : No signs and/or symptoms were reported regarding the genitourinary system. EENT: No signs and/or symptoms were reported regarding the EENT system. Derm: No signs and/or symptoms reported regarding the dermatologic system. Musculoskeletal: No signs and/or symptoms reported regarding the musculoskeletal system. 15:30 Reassessment: Attempted to call report at 1530. Nurse is discharging patient, nurse ld1 stated she would call me back for report within 30 minutes. Vital Signs: 12:03 BP 154 / 93; Pulse 93; Resp 23; Temp 98.9; Pulse Ox 91% on R/A; Weight 81.65 kg; Height jl7 5 ft. 6 in. (167.64 cm); Pain 0/10; 12:44 BP 153 / 85; Pulse 83; Resp 18; Pulse Ox 96% on R/A; ld1 13:56 BP 145 / 93; Pulse 84; Resp 18; Pulse Ox 95% on R/A; ld1 15:08 BP 130 / 97; Pulse 84; Resp 18; Pulse Ox 96% on R/A; ld1 16:16 BP 143 / 94; Pulse 82; Resp 23; Pulse Ox 97% on R/A; ld1 12:03 Body Mass Index 29.05 (81.65 kg, 167.64 cm) jl7 ED Course: 11:54 Patient arrived in ED. ds1 12:03 Leticia Ferreira FNP-C is PHCP. kb 12:03 Jacky Krause MD is Attending Physician. kb 12:05 Triage completed. jl7 12:05 Arm band placed on right wrist. jl7 12:44 Kristen Odonnell, TIARA is Primary Nurse. ld1 12:44 Patient has correct armband on for positive identification. Bed in low position. Call ld1 light in reach. Side rails up X2. rock climbing team member on. Pulse ox on. NIBP on. Door closed. Noise minimized. Warm blanket given. 12:44 No provider procedures requiring assistance completed. Inserted saline lock: 20 gauge ld1 in left antecubital area, using aseptic technique. Blood collected. 13:08 CXR XRAY In Process Unspecified. EDMS 13:15 COVID-19 SARS RT PCR (Document "Date of Onset" if Symptomatic) Sent. ld1 13:42 CT Chest For PE Angio In Process Unspecified. EDMS 14:21 Lilli Duenas MD is Hospitalizing Provider. kb 16:49 Patient admitted, IV remains in place. ld1 Administered Medications: 13:20 Drug: NS 0.9% 1000 ml Route: IV; Rate: 1000 ml; Site: left antecubital; ld1 15:23 Follow up: Response: No adverse reaction; IV Status: Completed infusion; IV Intake: ld1 1000ml 15:23 Drug: SOLU-Medrol (methylPrednisoLONE) 125 mg Route: IVP; Site: left antecubital; ld1 15:23 Follow up: Response: No adverse reaction ld1 Intake: 15:23 IV: 1000ml; Total: 1000ml. ld1 Outcome: 14:21 Decision to Hospitalize by Provider. kb 16:48 Admitted to Med/surg accompanied by tech, via wheelchair, room 411, with chart, Report ld1 called to TIARA Grey 16:48 Condition: stable 16:48 Instructed on the need for admit. 17:37 Patient left the ED. ld1 Signatures: Dispatcher [employer] Leticia Farris, CPO-C CPO-Tiffany Mitchell ds1 Buster Radford RN RN jl7 Kristen Odonnell RN RN ld1
[2021-10-13] MEDS ORDERED: MORPHINE 2 MG/ML SYR IV PRN (15:07)
[2021-10-13] MEDS ORDERED: ONDANSETRON 4 MG/2 ML VIAL IV PRN (15:07)
[2021-10-13] MEDS ORDERED: ALBUTEROL 2.5 MG/3 ML NEB SOL NEB PRN (15:07)
[2021-10-13] MEDS ORDERED: ACETAMINOPHEN 500 MG TAB PO PRN (15:07)
--- NOTE | 2021-10-13 15:07 | P.HP ---
Certification for Inpatient Patient admitted to: Observation With expected LOS: <2 Midnights Patient will require the following post-hospital care: None Practitioner: I am a practitioner with admitting privileges, knowledge of patient current condition, hospital course, and medical plan of care. Services: Services provided to patient in accordance with Admission requirements found in Title 42 Section 412.3 of the Code of Federal Regulations Patient History Date of Service: 10/13/21 Reason for admission: Shortness of breath History of Present Illness: 61-year-old male with no past medical history diagnosed with COVID since the last 3 weeks presented to the hospital because of persistent weakness, shortness of breath on minimal exertion and intermittent cough. Patient states his cough symptoms somewhat is improving he will became more worried because of his persistent exertional dyspnea. He admits to mild increase palpitation and weakness with minimal exertion. On presentation in the ED his initial O2 sat was 95% on room air.by walking to history of his O2 sat dropped to 89% with mild tachycardia. He states his malaise and intermittent fever has somewhat improved after he was treated with a 5-day course of steroids as well as oral Paxlomid the exertional dyspnea continues to persist. CTA shows no evidence of pulmonary embolism but mild to moderate infiltrate consistent with Covid pneumonia. Incidentally noted right renal mass which from 2002 appeared to have a cyst in the area. Patient has been admitted for persistent COVID pneumonia symptoms Allergies No Known Drug Allergies Allergy (Verified 04/13/18 06:48) Unknown Home Medications: Ibuprofen [Advil] 600 mg PO Q6HP PRN 04/12/18 - Past Medical/Surgical History Has patient received pneumonia vaccine in the past: No Diabetic: No -: None -: Cholecystectomy -: Lumbar laminectomy - Family History Sister -: Diabetes - Social History Smoking Status: Never smoker Smoking therapy provided: No Patient receptive to therapy: No Alcohol use: No CD- Drugs: No Caffeine use: Yes Place of Residence: Home Review of Systems 10-point ROS is otherwise unremarkable Respiratory: SOB with Excertion Physical Examination - Physical Exam General: Alert, Oriented x3, Cooperative, Obese HEENT: Atraumatic, Normocephalic Neck: Supple, 2+ carotid pulse no bruit, JVD not distended Respiratory: Clear to auscultation bilaterally, Diminished (at bases) Cardiovascular: Normal pulses, Regular rate/rhythm, Normal S1 S2 Capillary refill: <2 Seconds Gastrointestinal: Normal bowel sounds, Soft and benign, Non-distended Musculoskeletal: No clubbing, No swelling Neurological: Normal speech, Normal strength at 5/5 x4 extr, Normal tone, Cranial nerves 3-12 intact - Studies Laboratory Data (last 24 hrs) 10/13/21 12:29: PT 11.5, INR 1.00, APTT 43.0 H 10/13/21 12:29: WBC 8.30, Hgb 14.4, Hct 44.0, Plt Count 240 10/13/21 12:29: Sodium 139, Potassium 3.8, BUN 9, Creatinine 0.75, Glucose 135 H, Total Bilirubin 0.6, AST 44 H, ALT 107 H, Alkaline Phosphatase 113, Lipase 200 Assessment and Plan - Problems (Diagnosis) (1) Lab test positive for detection of COVID-19 virus Current Visit: Yes Status: Acute (2) Pneumonia Current Visit: Yes Status: Acute (3) Pneumonia due to 2019-nCoV Current Visit: Yes Status: Acute Discharge Plan: Home - Advance Directives Does patient have a Living Will: No Does patient have a Durable POA for Healthcare: No - Code Status/Comfort Care Code Status: Full Code Physician Review: Patient Assessed, Agree with Above Assessment and Plan Physician Review Additional Text: COVID-19 pneumoniawith persistent mild to moderate symptoms Exertional dyspnea Hypertension Incidental right renal mass Plan We will admit to observation - will restart patient on steroid since to mild persistent symptoms -We will add zinc sulfate Since low cytokine levels/inflammatory markers, no urgent need for remdesivir or baricitinib Continue to monitor O2 sat with activity/ambulation If improving symptoms in a.m. possible discharge home Monitor blood pressure since borderline elevated, IV hydralazine as needed Since incidentally noted right renal mass, will obtain MRI of the abdomen to further evaluate right renal mass although cyst in the area from before, the possibility of transformation considered. Imaging can be obtained as outpatient as well if unable to obtain inpatient -Subcutaneous Lovenox for DVT prophylaxis Advance directivefull code Disposition possible hospital stay for less than 24 hours Time Spent Managing Pts Care (In Minutes): 70
[2021-10-13] MEDS ORDERED: HYDRALAZINE HCL 20 MG/ML VIAL IV PRN (15:10)
[2021-10-13] MEDS: dexAMETHasone 4 MG TAB PO SCH ×2 (15:10→21:00)
[2021-10-13] MEDS ORDERED: METHYLPREDNISOLONE 125 MG INJ ONE (15:16)
--- NOTE | 2021-10-13 17:35 | P.PN ---
Date of Service: 10/13/21 Discussed with security installation sales technician, patient unable to hold his breath for 15 seconds. We will hold off MRI now until Covid completely clears and shortness of breath resolved
[2021-10-13 18:38] VITALS: BMI 29.0
[2021-10-13] MEDS ORDERED: INFLUENZA VACCINE (for 6+ mo) 0.5 ML DOSE IMVAC ONE (20:00)
[2021-10-13] MEDS: FAMOTIDINE 20 MG TAB PO SCH (21:32)
[2021-10-13] MEDS: ENOXAPARIN 40 MG/0.4 ML SQ SCH (21:32)
[2021-10-13] MEDS: NA CHLORIDE 0.9% 1,000 ML IV SCH (22:47)
[2021-10-14 03:59] LABS: Absolute Lymphocytes (CBC) 1.2 K/uL (0.7-4.9); Hematocrit 41.6 % (39.6-49.0); Lymphocytes % 10.7 % (15.3-44.8); MPV 8.1 fL (7.6-11.3); RBC Red Blood Cell Count 4.76 M/uL (4.33-5.43)
[2021-10-14 04:15] LABS: ALT/SGPT 96 U/L (12-78); AST/SGOT 31 U/L (15-37); Alkaline Phosphatase 109 U/L (45-117); BUN Blood Urea Nitrogen 10 mg/dL (7-18); Bicarbonate 24 mmol/L (21-32); Bilirubin Total 0.5 mg/dL (0.2-1.0); Glucose Level 166 mg/dL (74-106); HDL Cholesterol 43 mg/dL (40-60); LDL Cholesterol, Calculated 161 (<130); Potassium 4.1 mmol/L (3.5-5.1); Sodium Level 140 mmol/L (136-145)
[2021-10-14 04:37] LABS: Blood Morphology Comment NOT SEEN (NOT SEEN); Platelet Estimate ADEQ
--- NOTE | 2021-10-14 09:01 | EKG ---
Test Date: 2021-10-13 Test Time: 12:26:54 Pharmacy Sales Assistant: SIRISHA MEASUREMENT RESULTS: Intervals: Rate: 84 IL: 138 QRSD: 84 QT: 360 QTc: 425 [place]: P: 61 IL: 138 QRS: 30 T: 44 INTERPRETIVE STATEMENTS: Normal sinus rhythm Normal ECG Compared to ECG 06/29/2016 16:47:18 No significant changes Electronically Signed On 10-14-21 08:57:56 BARGE PILOT by James Sheridan
[2021-10-14] MEDS: GUAIFENESIN/DM 5 ML UCUP PO PRN (09:21)
[2021-10-14] MEDS: ENOXAPARIN 40 MG/0.4 ML SQ SCH (09:21)
[2021-10-14] MEDS: dexAMETHasone 4 MG TAB PO SCH ×2 (09:22→20:59)
[2021-10-14] MEDS: FAMOTIDINE 20 MG TAB PO SCH ×2 (09:22→20:59)
[2021-10-14] MEDS: ZINC SULFATE 220 MG CAP PO SCH (09:22)
--- NOTE | 2021-10-14 12:43 | RAD REPORT ---
EXAM DESCRIPTION: CT - Abdomen W/Wo Contrast - 10/14/2021 12:31 pm CLINICAL HISTORY: Renal mass COMPARISON: CT chest August 12, 2022 TECHNIQUE: Computed axial tomography of the abdomen pelvis was obtained without oral or IV contrast. Lack of IV and oral contrast limits evaluation of solid organs, bowel, and vessels. Coronal reformat raúl images were obtained and reviewed. All CT scans are performed using dose optimization technique as appropriate and may include automated exposure control or mA/KV adjustment according to patient size. FINDINGS: Fatty liver. Spleen, pancreas, adrenals and left kidney are unremarkable. 5.4 centimeter simple cyst right kidney. A filling defect within the pyelocaliceal structures and vis ualized ureters is not seen Cholecystectomy. IMPRESSION: 5.4 centimeter simple cyst right kidney
--- NOTE | 2021-10-14 14:19 | CON ---
Date of Consultation: 10/14/2021 Reason For Consultation: Renal mass. History Of Present Illness: This is a 61-year-old gentleman with significant past medical history ne ronny, came to the hospital complaining from weakness, found to have COVID pneumonia. Primary samuel p including CT ruled out PE, but found to have incidental mass on the kidney on the right side. For that reason, we have been consulted. The patient denied awareness of any kidney disease or masses be fore. Denied any imaging before. No hematuria. No weight loss. No abdominal pain. No flank pain. Allergies: NO KNOWN DRUGS ALLERGY. Home Medications: Only ibuprofen. Past Surgical History: Includes cholecystectomy, laminectomy. Family History: Positive for hypertension. Review of Systems: Head and Neck: No red eye. No ear pain. GI: No nausea. No vomiting. : No polyuria. No dysuria. No hematuria. No flank pain. No CVS tenderness. Musculoskeletal: No joint pain. Endocrine: No polydipsia. Skin: No rash. Neuro: No neuropathy. No dizziness. Respiratory: No shortness of breath. Cardiovascular: No leg swelling. No chest pain. Physical Examination: Vital Signs: Blood pressure 137/81, pulse of 81, afebrile. Chest: Clear to auscultation. Heart: S1, S2. Regular. Abdomen: Soft, nontender. Extremity: No edema. Neuro: Alert. No focality. Laboratory Data: WBC 11.2, H and H 14.1/41.6. Sodium 140, potassium 4.1, bicarb 24, BUN 10, creatin ine 0.6, calcium 8.5, albumin 3, corrected calcium is 9.3. CT chest PE protocol; right renal cyst, i ncompletely evaluated, possible of mass. Current Medications: The patient on include albuterol, hydralazine, zinc sulfate, Pepcid, Zofran, IV fluid. Assessment And Plan: 1.Renal mass, questionable of cyst/mass. We are going to go ahead and do triple phase CT with contr ast and we will evaluate. I had long discussion with the patient. We reassured the patient. We enid l follow up depending on the results. 2.COVID pneumonia as by primary. ELVIE/HOOD Voice ID: [id number] Report ID: [id number]
[2021-10-14] MEDS: NA CHLORIDE 0.9% 1,000 ML IV SCH (18:00)
[2021-10-15] MEDS: ENOXAPARIN 40 MG/0.4 ML SQ SCH (09:00)
[2021-10-15] MEDS: ZINC SULFATE 220 MG CAP PO SCH (09:01)
[2021-10-15] MEDS: dexAMETHasone 4 MG TAB PO SCH (09:01)
[2021-10-15] MEDS: FAMOTIDINE 20 MG TAB PO SCH (09:01)
[2021-10-15] MEDS: GUAIFENESIN/DM 5 ML UCUP PO PRN (09:04)
[2021-10-15 10:52] VITALS: O2SAT 94
--- NOTE | 2021-10-15 11:19 | PN ---
Date of Progress Note: 10/15/2021 Subjective: The patient was admitted with COVID pneumonia, found to have incidental renal mass, yest erday undergone CT triple-phase. The patient is feeling well. Objective: Vital Signs: Blood pressure 140/89, pulse of 70, afebrile. Chest: Clear to auscultation. Heart: S1, S2. Regular. Abdomen: Soft, nontender. Extremities: No edema. Neurologic: Alert. No focality. Laboratory Data: WBC 11.2, H and H 14.1/41.6. Sodium 140, potassium 4.1, bicarb 24, BUN 10, creatin ine 0.6, calcium 8.5, magnesium of 2, albumin of 3. Corrected calcium 9.4. Current Medications: The patient on include; 1.Albuterol. 2.Lovenox. 3.Zinc sulfate. 4.Dexamethasone. 5.Pepcid. 6.Normal saline. Assessment And Plan: 1.Renal cyst confirmed with CT simple cyst. I reassured the patient. The patient is going to need to be followed 1-2 years with repeated ultrasound. 2.Hypertension, controlled, optimal. 3.COVID pneumonia as by primary. ELVIE/HOOD Voice ID: [id number] Report ID: [id number]
[2021-10-15 17:37] VITALS: BP 121/86; TEMP 98.8
== END 2021-10-15 17:43 | disposition home or self-care (01) ==
LOC: ER 11:52 → ERHOLD 15:08 → 4TH 17:22
PROVIDERS: ADMIT Internal Medicine; ATTEND Hospitalist
DX: U07.1 COVID-19 (principal); J12.82 Pneumonia due to coronavirus disease 2019; I10 Essential (primary) hypertension; N28.1 Cyst of kidney, acquired; Z90.49 Acquired absence of other specified parts of digestive tract; Z82.49 Family history of ischemic heart disease and other diseases of the circulatory system; Z83.3 Family history of diabetes mellitus
CPT/HCPCS: 96361; 93005; 87040 ×2; 85025 ×2; 80048; 36415 ×2; 83735 ×3; 85610; 80061; 85379; 80076; 83605 ×2; 85730; 84484; 82728; 83690; 80053; 84145; 86140; 74170; 71275; 71045; 96374; 99285; U0003; Q9967 ×2; J1650 ×3; J7030 ×3; J2930; G0378; J8540

== ENCOUNTER 2023-07-28 23:57 | Emergency (ER) | payer OTHER, SELFPAY ==
--- OUTSIDE RECORDS SUMMARY | 2023-07-28 23:59 | XMS REPORT | Continuity of Care Document ---
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 mellitus 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 region lumbosacra [facility] [id number] Numbness Problem Active Comm on of left [facility] Allergies, Adverse Reactions, Alerts This patient has no known allergies or adverse reactions. Social History Social Habit Start Date Stop Date Quantity Comments Source Sex Assigned At Com mon [facility] History of Tobacco Use Co mmon [facility] Smoking Status Start Date Stop Date Source Never Smoker Common [facility] Medications Ordered Filled Start Stop Current Ordering Indication Dosage Frequency Signature Comments Components Source Medication Medication Date Date Medication? Clinician (SIG) Name Name Aspir-81 Aspir-81 Yes Guy 1 tablet C nikki Lazo [facility] Aspir-81 81 Aspir-81 81 No 1{table QD Aspir-81 MG MG t} 81 MG Aspir-81 81 Aspir-81 81 No 1{table QD Aspir-81 MG MG t} 81 MG Procedures This patient has no known procedures. Encounters Start End Encounter Admission Attending Care Care Encounter Source Date/Time Date/Time Type Type Clinicians Facility Department ID 2022-03-19 Outpatient Lazo, STLMLC [facility] [id number] Common 17:35:00 Guy 04312 [facility] 2021-10-01 Outpatient Lazo, STLMLC [facility] [id number] Common 12:32:19 Guy [id number] [facility] 2021-10-01 Outpatient Lazo, STLMLC [facility] [id number] Common 11:14:43 Guy 32147 [facility] 2021-10-06 2021-10-06 (TEL) [facility] [id number] Co mmon 00:00:00 00:00:00 [facility] 2021-09-19 2021-09-19 (TEL) [facility] [id number] Co mmon 00:00:00 00:00:00 [facility] 2019-11-27 2019-11-27 [facility] [id number] Common 11:00:00 11:00:00 [facility] Spir it [place] 2019-10-30 2019-10-30 [facility] [id number] Common 08:00:00 08:00:[place] [address] [facility] 2019-02-27 2019-02-27 [facility] [id number] Common 16:45:00 16:45:00 [place] [address] [facility] 2018-10-10 2018-10-10 [facility] [id number] Common 08:30:00 08:30:00 [place] [address] [facility] 2018-08-23 2018-08-23 [facility] [id number] Common 08:15:00 08:15:00 [place] [address] [facility] 2018-04-21 2018-04-21 [facility] [id number] Common 08:45:00 08:45:00 [place] [address] [facility] 2018-02-14 2018-02-14 [facility] [id number] Common 09:46:00 09:46:00 [place] [address] [facility] 2017-12-21 2017-12-21 [facility] [id number] Common 15:30:00 15:30:00 [place] [address] [facility] Results This patient has no known results.
--- NOTE | 2023-07-29 00:20 | EDPHYS ---
Physician Documentation [facility] Name: Eran Alonso Age: 63 yrs Sex: Male : 1960 Arrival Date: 07/28/2023 Time: 23:57 Bed IW1 Private MD: ED Physician Glen Waller HPI: 07/29 00:31 This 63 yrs old Male presents to ER via Ambulatory with complaints of Employee kb Exposure. 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 Came in to get prophylactic antibiotic.. Historical: - Allergies: 00:22 No Known Allergies; cm10 - Immunization history:: Adult Immunizations unknown. - Social history:: Smoking status: Patient denies any tobacco usage or history of. ROS: 00:30 Constitutional: Negative for fever, chills, and weight loss, kb 00:30 All other systems are negative, Exam: 00:30 Constitutional: This is a well developed, well nourished patient who is awake, alert, kb and in no acute distress. Head/Face: Normocephalic, atraumatic. ENT: Moist Mucous membranes Respiratory: Respirations even and unlabored. No increased work of breathing. Talking in full sentences Skin: Warm, dry with normal turgor. Normal color. MS/ Extremity: Pulses equal, no cyanosis. Neurovascular intact. Full, normal range of motion. Neuro: Awake and alert, GCS 15, oriented to person, place, time, and situation. Moves all extremities. Normal gait. Vital Signs: 00:31 BP 144 / 89; Pulse 66; Resp 18; Temp 98.6; Pulse Ox 97% ; cm10 MDM: 00:05 Patient medically screened. kb 00:30 Data reviewed: vital signs, nurses notes. Counseling: I had a detailed discussion with kb the patient and/or guardian regarding the historical points, exam findings, and any diagnostic results supporting the discharge/admit diagnosis, the need for outpatient follow up, a family practitioner, to return to the emergency department if symptoms worsen or persist or if there are any questions or concerns that arise at home. Administered Medications: 00:22 Drug: Ciprofloxacin PO 1 grams PO once Route: PO; cm10 00:22 Follow up: Response: No adverse reaction cm10 Disposition: 06:01 Co-signature as Attending Physician, lGen Waller MD I agree with the assessment sp4 and plan of care. I reviewed the patient's care provided by the Advanced Practice Provider and agree with the diagnosis and treatment plan. Disposition Summary: 07/29/23 00:19 Discharge Ordered Notes: Location: Home kb Condition: Stable kb Diagnosis - Exposure to bacterial meningitis kb Followup: kb - With: Emergency Department - When: As needed - Reason: Worsening of condition Followup: kb - With: Private Physician - When: 2 - 3 days - Reason: Recheck today's complaints, Continuance of care, Re-evaluation by your physician Forms: - Medication Reconciliation Form kb - Thank You Letter kb - Antibiotic Education kb - Prescription Opioid Use kb - Patient Portal Instructions kb - Leadership Thank You Letter Signatures: Leticia Ferreira, KRISTINA-C KRISTINA-Glen Soto MD MD sp4 Victoria Fuller, RN RN cm10
--- NOTE | 2023-07-29 00:32 | ER ---
Nurse's Notes [facility] Name: Eran Alonso Age: 63 yrs Sex: Male : 1960 Arrival Date: 07/28/2023 Time: 23:57 Bed IW1 Private MD: Diagnosis: Exposure to bacterial meningitis Presentation: 07/29 00:21 Chief complaint: Patient states: Presenting to the ED for bacterial meningitis exposure cm10 to ED patient. Coronavirus screen: Vaccine status: Patient reports receiving the 2nd dose of the covid vaccine. Client denies travel out of the [place] in the last 14 days. Ebola Screen: Patient denies travel to an Ebola-affected area in the 21 days before illness onset. No symptoms or risks identified at this time. Initial Sepsis Screen: Does the patient meet any 2 criteria? No. Patient's initial sepsis screen is negative. Does the patient have a suspected source of infection? No. Patient's initial sepsis screen is negative. Risk Assessment: Do you want to hurt yourself or someone else? Patient reports no desire to harm self or others. Onset of symptoms was July 29, 2023. 00:21 Method Of Arrival: Ambulatory cm10 00:21 Acuity: CRISTINA 4 cm10 Triage Assessment: :23 General: Appears in no apparent distress. comfortable, Behavior is calm, cooperative. cm10 Pain: Denies pain. Neuro: No deficits noted. Level of Consciousness is awake, alert, obeys commands, Oriented to person, place, time, situation. Historical: - Allergies: 00:22 No Known Allergies; cm10 - Immunization history:: Adult Immunizations unknown. - Social history:: Smoking status: Patient denies any tobacco usage or history of. Screenin:23 [facility] ED Fall Risk Assessment (Adult) History of falling in the last 3 months, cm10 including since admission No falls in past 3 months (0 pts) Confusion or Disorientation No (0 pts) Intoxicated or Sedated No (0 pts) Impaired Gait No (0 pts) Mobility Assist Device Used No (0 pt) Altered Elimination No (0 pt) Score/Fall Risk Level 0 - 2 = Low Risk Oriented to surroundings, Maintained a safe environment, Hourly rounding (assess needs \T\ fall precautionary measures) done. Abuse screen: Denies threats or abuse. Denies injuries from another. Nutritional screening: No deficits noted. 00:31 Tuberculosis screening: No symptoms or risk factors identified. cm10 Vital Signs: 00:31 BP 144 / 89; Pulse 66; Resp 18; Temp 98.6; Pulse Ox 97% ; cm10 ED Course: 00:05 Patient arrived in ED. jj6 00:05 Leticia Ferreira FNP-C [facility] cathy 00:05 Glen Waller MD is Attending Physician. kb 00:22 Triage completed. cm10 00:22 Arm band placed on Patient placed in waiting room. cm10 00:23 Patient has correct armband on for positive identification. Provided Education on: ER cm10 process and procedures. . 00:24 No provider procedures requiring assistance completed. Patient did not have IV access cm10 during this emergency room visit. Administered Medications: 00:22 Drug: Ciprofloxacin PO 1 grams PO once Route: PO; cm10 00:22 Follow up: Response: No adverse reaction cm10 Medication: 00:23 VIS not applicable for this client. cm10 Outcome: 00:19 Discharge ordered by . kb 00:31 Discharged to home ambulatory, cm10 00:31 Condition: good 00:31 Discharge instructions given to patient, Instructed on discharge instructions, follow up and referral plans. Demonstrated understanding of instructions, follow-up care, 00:31 Patient left the ED. cm10 Signatures: Leticia Ferreira FNP-C FNP-Ckb Jeffries, Jennifer jj6 Victoria Fuller, RN RN cm10
[2023-07-29] MEDS ORDERED: CIPROFLOXACIN HCL 500 MG TAB ONE (00:35)
[2023-07-29 00:59] VITALS: BP 144/89; TEMP 98.6; O2SAT 97
== END 2023-07-29 00:31 | disposition home or self-care (01) ==
LOC: ER 23:57
DX: Z20.811 Contact with and (suspected) exposure to meningococcus (principal)
CPT/HCPCS: 99283